=== PATIENT | female | born 1995 | race Caucasian/White ===

== ENCOUNTER 2022-06-25 18:45 | Outpatient (CLI) ==
[~2022-06-25] VITALS: Ht 160 cm; Wt 86.1 kg
[2022-06-25 19:15] VITALS: BP 114/69
[2022-06-25] MEDS ORDERED: PRENTAB9 PO (19:26)
== END 2022-06-25 20:27 | disposition home or self-care (01) ==
LOC: M LDO 18:45
PROVIDERS: ATTEND Obstetrics & Gynecology
DX: O26.899 Other specified pregnancy related conditions, unspecified trimester (principal); Z3A.00 Weeks of gestation of pregnancy not specified; Z88.0 Allergy status to penicillin; R10.11 Right upper quadrant pain

== ENCOUNTER 2022-10-14 09:58 | Inpatient (IN) | payer OTHER ==
[~2022-10-14] VITALS: Ht 160 cm; Wt 95.0 kg
[2022-10-14] VITALS (49 sets, daily range): BP systolic 106–188; BP diastolic 54–109
[~2022-10-14 09:58] MED LIST: PRENTAB9 PO
[2022-10-14] MEDS ORDERED: CALC500C16 PO (10:18)
[2022-10-14] MEDS ORDERED: [UNRECOGNIZED DRUG - OTHER] (10:18)
[2022-10-14] MEDS ORDERED: HOME MED LIST COMPLETE! XX SCH (10:20)
[2022-10-14 11:44] LABS: BASO % 0.2 % (0.0-1.0); EOS # 0.2 10^3/uL (0.0-0.5); EOS % 1.6 % (0.0-3.0); HEMATOCRIT 37.8 % (36.0-47.0); HEMOGLOBIN 12.8 g/dl (12.0-15.5); LYMPH # 2.1 10^3/uL (1.5-5.0); LYMPH % 19.6 % (24.0-44.0); MEAN CORPUSCULAR HEMOGLOBIN 29.2 pg (27.0-33.0); MEAN CORPUSCULAR HGB CONC 33.9 g/dl (32.0-36.5); MEAN CORPUSCULAR VOLUME 86.1 fl (80.0-96.0); MONO # 0.8 10^3/uL (0.0-0.8); MONO % 7.1 % (2.0-8.0); NEUTROPHILS # 7.6 10^3/uL (1.5-8.5); PLATELET COUNT, AUTOMATED 207 10^3/uL (150-450); RED BLOOD COUNT 4.39 10^6/uL (4.00-5.40); WHITE BLOOD COUNT 10.7 10^3/uL (4.0-10.0)
[2022-10-14 11:59] LABS: URIC ACID 5.2 MG/DL (3.1-7.8)
[2022-10-14 12:01] LABS: LDH LACTATE DEHYDROGENASE 188 U/L (120-246)
[2022-10-14 12:02] LABS: ALT/SGPT 11 U/L (7.0-40); AST/SGOT 12 U/L (<34); BILIRUBIN,TOTAL 0.5 MG/DL (0.3-1.2); CREATININE FOR GFR 0.54 MG/DL (0.55-1.30); CREATININE,RANDOM URINE 163.2 MG/DL; GLOMERULAR FILTRATION RATE > 60.0 (>60)
[2022-10-14] MEDS ORDERED: CARBOPROST TROMETHAMINE 250 MCG/ML AMP IM PRN (12:30)
[2022-10-14] MEDS ORDERED: LABETALOL 100MG/20ML VIAL IV ONE (12:30)
[2022-10-14] MEDS ORDERED: * PENDING VANCOMYCIN ENTRY XX SCH ×2 (12:30→21:00)
[2022-10-14] MEDS ORDERED: miSOPROStol 50MCG 1/2 TABLET SL ONE (12:30)
[2022-10-14] MEDS ORDERED: CALCIUM GLUCONATE 1,000 MG in D5W MINI-BAG PLUS 100 ML IV PRN (12:30)
[2022-10-14] MEDS ORDERED: TRANEXAMIC ACID INJection 1,000 MG in NS 100 ML IV PRN (12:30)
[2022-10-14] MEDS ORDERED: OXYTOCIN DRIP 30 UNITS in IV 1 EA IV PRN ×4 (12:30)
[2022-10-14] MEDS ORDERED: LIDOCAINE 1% MDV 20ML VIAL INFIL PRN (12:30)
[2022-10-14] MEDS ORDERED: MAG Sulf (L&D) 4 GM/100 ML 4 GM in IV 1 EA IV ONE (13:00)
[2022-10-14] MEDS ORDERED: LABETALOL 100MG/20ML VIAL IV SCH (13:00)
[2022-10-14] MEDS: MAG Sulf (OBGYN) 20GM/500ML 20,000 MG in IV 1 EA IV SCH (13:38)
[2022-10-14] MEDS ORDERED: LABETALOL 100MG/20ML VIAL IV STA (21:54)
[2022-10-14] MEDS ORDERED: PROMETHAZINE 25MG/ML 1ML VIAL IV ONE (23:10)
[2022-10-14] MEDS ORDERED: LABETALOL 200 MG TAB PO ONE (23:20)
[2022-10-14] MEDS ORDERED: MAGNESIUM SULFATE 4% INJ 20GM/500ML (40MG/ML) As Ordered ONE (23:36)
[2022-10-14] MEDS: BUTORPHANOL 2 MG/ML 1ML VIAL IV PRN (23:44)
[2022-10-15] VITALS (77 sets, daily range): BP systolic 114–185; BP diastolic 61–112
[2022-10-15] MEDS ORDERED: VANCOMYCIN HCL 1,000 MG, VIAL MATE ADAPTER 1 EACH in NS 250 ML IV ONE ×4 (01:00)
[2022-10-15] MEDS: miSOPROStol 50MCG 1/2 TABLET PO SCH ×2 (05:22→09:31)
[2022-10-15] MEDS: BUTORPHANOL 2 MG/ML 1ML VIAL IV PRN (06:56)
[2022-10-15] MEDS ORDERED: LABETALOL 200 MG TAB PO SCH (09:00)
[2022-10-15 09:01] LABS: BASO % 0.3 % (0.0-1.0); EOS # 0.1 10^3/uL (0.0-0.5); EOS % 0.8 % (0.0-3.0); HEMATOCRIT 34.6 % (36.0-47.0); HEMOGLOBIN 11.6 g/dl (12.0-15.5); LYMPH # 1.4 10^3/uL (1.5-5.0); LYMPH % 12.2 % (24.0-44.0); MEAN CORPUSCULAR HEMOGLOBIN 29.2 pg (27.0-33.0); MEAN CORPUSCULAR HGB CONC 33.5 g/dl (32.0-36.5); MEAN CORPUSCULAR VOLUME 87.2 fl (80.0-96.0); MONO # 0.6 10^3/uL (0.0-0.8); MONO % 5.2 % (2.0-8.0); NEUTROPHILS # 9.3 10^3/uL (1.5-8.5); PLATELET COUNT, AUTOMATED 184 10^3/uL (150-450); RED BLOOD COUNT 3.97 10^6/uL (4.00-5.40); WHITE BLOOD COUNT 11.5 10^3/uL (4.0-10.0)
[2022-10-15 09:20] LABS: INR 0.88; PROTHROMBIN TIME 12.1 SECONDS (12.5-14.5)
[2022-10-15 09:24] LABS: ALBUMIN 2.5 G/DL (3.2-5.2); ALKALINE PHOSPHATASE 122 U/L (46-116); ALT/SGPT 9 U/L (7.0-40); AST/SGOT 18 U/L (<34); BILIRUBIN,TOTAL 0.4 MG/DL (0.3-1.2); BLOOD UREA NITROGEN < 5 MG/DL (9-23); CALCIUM LEVEL 7.5 MG/DL (8.5-10.1); CARBON DIOXIDE LEVEL 20 MMOL/L (20-31); CHLORIDE LEVEL 104 MMOL/L (98-107); CREATININE FOR GFR 0.56 MG/DL (0.55-1.30); GLOMERULAR FILTRATION RATE > 60.0 (>60); GLUCOSE, FASTING 107 MG/DL (60-100); POTASSIUM SERUM 4.4 MMOL/L (3.5-5.1); SODIUM LEVEL 137 MMOL/L (136-145); TOTAL PROTEIN 5.4 G/DL (5.7-8.2)
[2022-10-15] MEDS: MAG Sulf (OBGYN) 20GM/500ML 20,000 MG in IV 1 EA IV SCH ×2 (09:38→19:09)
[2022-10-15] MEDS: LR 1,000 ML IV SCH (12:03)
[2022-10-15] MEDS: VANCOMYCIN HCL 1,000 MG, VIAL MATE ADAPTER 1 EACH in NS 250 ML IV SCH (12:03)
[2022-10-15] MEDS ORDERED: OXYTOCIN DRIP 30 UNITS in IV 1 EA IV SCH (13:45)
[2022-10-15] MEDS: LABETALOL 100MG TAB PO SCH (17:53)
[2022-10-15] MEDS ORDERED: LABETALOL 100MG/20ML VIAL IV STA ×3 (18:22→19:01)
[2022-10-15 18:35] LABS: HEMATOCRIT 35.8 % (36.0-47.0); HEMOGLOBIN 11.9 g/dl (12.0-15.5); MEAN CORPUSCULAR HGB CONC 33.2 g/dl (32.0-36.5); MEAN CORPUSCULAR VOLUME 87.3 fl (80.0-96.0); PLATELET COUNT, AUTOMATED 208 10^3/uL (150-450); WHITE BLOOD COUNT 12.8 10^3/uL (4.0-10.0)
[2022-10-15] MEDS ORDERED: ePHEDrine SULFATE 25 MG/5 ML(5MG/ML) SYRINGE IVP PRN (19:40)
[2022-10-15] MEDS ORDERED: LR 500 ML IV PRN (19:40)
[2022-10-15] MEDS ORDERED: ONDANSETRON 4MG 2ML VIAL IV PRN (19:40)
[2022-10-15] MEDS ORDERED: NALOXONE INJ 0.4MG/1ML VIAL IV PRN (19:40)
[2022-10-15] MEDS ORDERED: diphenhydrAMINE 50MG/ML VIAL IV PRN (19:40)
[2022-10-15] MEDS ORDERED: EPIDURAL/PCA KEYS XX PRN (19:40)
[2022-10-15] MEDS: FENTANYL/ROPIVACAINE/NACL BAG 100 ML EPIDURAL SCH (20:18)
[2022-10-16] VITALS (75 sets, daily range): BP systolic 115–186; BP diastolic 55–108
[2022-10-16] MEDS: VANCOMYCIN HCL 1,000 MG, VIAL MATE ADAPTER 1 EACH in NS 250 ML IV SCH (00:16)
[2022-10-16] MEDS ORDERED: LABETALOL 100MG/20ML VIAL IV STA ×6 (03:20→05:48)
[2022-10-16] MEDS: LABETALOL 100MG TAB PO SCH ×3 (03:26→18:44)
[2022-10-16] MEDS ORDERED: hydrALAZINE 20MG/ML 1ML VIAL IV STA ×3 (04:38→08:30)
[2022-10-16] MEDS: MAG Sulf (OBGYN) 20GM/500ML 20,000 MG in IV 1 EA IV SCH ×2 (04:52→14:40)
[2022-10-16] MEDS: FENTANYL/ROPIVACAINE/NACL BAG 100 ML EPIDURAL SCH (04:58)
[2022-10-16] MEDS ORDERED: ACETAMINOPHEN TAB 650MG DOSE (2X325MG) PO PRN (06:45)
[2022-10-16] MEDS ORDERED: METHYLERGONOVINE MALEATE 0.2 MG TAB PO PRN (06:45)
[2022-10-16] MEDS ORDERED: RHOGAM 300 MCG (1500 IU) INJ (J2790) IM SCH (06:45)
[2022-10-16] MEDS ORDERED: DIBUCAINE 1% OINTMENT 30GM TOP PRN (06:45)
[2022-10-16] MEDS ORDERED: OXYTOCIN DRIP 30 UNITS in IV 1 EA IV SCH ×4 (06:45)
[2022-10-16] MEDS ORDERED: DOCUSATE SODIUM 100MG CAPSULE PO PRN (06:45)
[2022-10-16] MEDS ORDERED: IBUPROFEN 600MG TAB PO PRN (06:45)
[2022-10-16 06:54] LABS: CORD GAS ABE A -4.4; CORD GAS ABE V -0.7; CORD GAS HCO3 A 24.3 MEQ/L; CORD GAS HCO3 V 24.6 MEQ/L; CORD GAS O2 SAT A 32.1 %; CORD GAS O2 SAT V 67.9 %; CORD GAS PCO2 A 59.7 mmHg; CORD GAS PCO2 V 42.6 mmHg; CORD GAS PH A 7.228 UNITS; CORD GAS PH V 7.379 UNITS; CORD GAS PO2 A 18.2 mmHg; CORD GAS PO2 V 28.2 mmHg; CORD GAS SBC A 19.4 MEQ/L; CORD GAS SBC V 23.1 MEQ/L; CORD GAS TCO2 A 26.2 MEQ/L; CORD GAS TCO2 V 25.9 MEQ/L
[2022-10-16] MEDS: IBUPROFEN 800 MG TAB PO PRN (09:04)
[2022-10-16] MEDS: PRENATAL VITAMINS CHEWABLE TABLET PO SCH (10:12)
[2022-10-16] MEDS ORDERED: LABETALOL 100MG TAB PO SCH (12:00)
[2022-10-16] MEDS: LR 1,000 ML IV SCH (17:07)
[2022-10-17] VITALS (45 sets, daily range): BP systolic 105–190; BP diastolic 55–110
[2022-10-17] MEDS: MAG Sulf (OBGYN) 20GM/500ML 20,000 MG in IV 1 EA IV SCH ×2 (00:16→20:19)
[2022-10-17] MEDS: LABETALOL 100MG TAB PO SCH (04:10)
[2022-10-17] MEDS ORDERED: LABETALOL 200 MG TAB PO STA ×2 (05:14→12:05)
[2022-10-17] MEDS: PRENATAL VITAMINS CHEWABLE TABLET PO SCH (08:43)
[2022-10-17 09:37] LABS: HEMATOCRIT 32.1 % (36.0-47.0); HEMOGLOBIN 10.7 g/dl (12.0-15.5); MEAN CORPUSCULAR HEMOGLOBIN 29.6 pg (27.0-33.0); MEAN CORPUSCULAR HGB CONC 33.3 g/dl (32.0-36.5); MEAN CORPUSCULAR VOLUME 88.7 fl (80.0-96.0); PLATELET COUNT, AUTOMATED 175 10^3/uL (150-450); RED BLOOD COUNT 3.62 10^6/uL (4.00-5.40)
[2022-10-17 10:07] LABS: ALBUMIN 2.2 G/DL (3.2-5.2); ALKALINE PHOSPHATASE 95 U/L (46-116); ALT/SGPT < 9 U/L (7.0-40); AST/SGOT 13 U/L (<34); BILIRUBIN,TOTAL 0.3 MG/DL (0.3-1.2); BLOOD UREA NITROGEN 6 MG/DL (9-23); CALCIUM LEVEL 7.6 MG/DL (8.5-10.1); CARBON DIOXIDE LEVEL 21 MMOL/L (20-31); CHLORIDE LEVEL 107 MMOL/L (98-107); CREATININE FOR GFR 0.63 MG/DL (0.55-1.30); GLOMERULAR FILTRATION RATE > 60.0 (>60); GLUCOSE, FASTING 102 MG/DL (60-100); POTASSIUM SERUM 3.6 MMOL/L (3.5-5.1); SODIUM LEVEL 140 MMOL/L (136-145); TOTAL PROTEIN 4.9 G/DL (5.7-8.2)
[2022-10-17] MEDS: NIFEdipine 30MG XL TAB PO SCH (11:56)
[2022-10-17] MEDS ORDERED: LABETALOL 200 MG TAB PO SCH (12:00)
[2022-10-17] MEDS ORDERED: hydrALAZINE 20MG/ML 1ML VIAL IV STA ×2 (17:43→18:37)
[2022-10-17] MEDS ORDERED: CALCIUM GLUCONATE 1,000 MG in D5W MINI-BAG PLUS 100 ML IV PRN (18:55)
[2022-10-17] MEDS ORDERED: MAG Sulf (L&D) 4 GM/100 ML 4 GM in IV 1 EA IV ONE (18:55)
[2022-10-17] MEDS: IBUPROFEN 800 MG TAB PO PRN (18:59)
[2022-10-17] MEDS ORDERED: LABETALOL 100MG/20ML VIAL IV STA (19:21)
[2022-10-17] MEDS: LR 1,000 ML IV SCH (19:57)
[2022-10-17] MEDS: LABETALOL 200 MG TAB PO SCH (20:37)
[2022-10-18] VITALS (24 sets, daily range): BP systolic 120–160; BP diastolic 60–94
[2022-10-18] MEDS: LABETALOL 200 MG TAB PO SCH ×3 (04:12→20:06)
[2022-10-18] MEDS: ACETAMINOPHEN 500 MG TAB PO PRN ×2 (04:22→14:14)
[2022-10-18] MEDS: MAG Sulf (OBGYN) 20GM/500ML 20,000 MG in IV 1 EA IV SCH ×2 (06:10→16:29)
[2022-10-18] MEDS: LR 1,000 ML IV SCH (07:17)
[2022-10-18 07:38] LABS: HEMATOCRIT 31.6 % (36.0-47.0); HEMOGLOBIN 10.2 g/dl (12.0-15.5); MEAN CORPUSCULAR HEMOGLOBIN 29.2 pg (27.0-33.0); MEAN CORPUSCULAR HGB CONC 32.3 g/dl (32.0-36.5); MEAN CORPUSCULAR VOLUME 90.5 fl (80.0-96.0); PLATELET COUNT, AUTOMATED 178 10^3/uL (150-450); RED BLOOD COUNT 3.49 10^6/uL (4.00-5.40); WHITE BLOOD COUNT 8.2 10^3/uL (4.0-10.0)
[2022-10-18 08:17] LABS: ALBUMIN 2.3 G/DL (3.2-5.2); ALKALINE PHOSPHATASE 87 U/L (46-116); ALT/SGPT < 9 U/L (7.0-40); AST/SGOT 14 U/L (<34); BILIRUBIN,TOTAL 0.2 MG/DL (0.3-1.2); BLOOD UREA NITROGEN < 5 MG/DL (9-23); CALCIUM LEVEL 7.6 MG/DL (8.5-10.1); CARBON DIOXIDE LEVEL 22 MMOL/L (20-31); CHLORIDE LEVEL 108 MMOL/L (98-107); GLOMERULAR FILTRATION RATE > 60.0 (>60); GLUCOSE, FASTING 87 MG/DL (60-100); POTASSIUM SERUM 3.9 MMOL/L (3.5-5.1); SODIUM LEVEL 142 MMOL/L (136-145)
[2022-10-18] MEDS: NIFEdipine 30MG XL TAB PO SCH ×2 (08:24→20:24)
[2022-10-18] MEDS: PRENATAL VITAMINS CHEWABLE TABLET PO SCH (08:24)
[2022-10-18] MEDS ORDERED: MEASLES,MUMPS,RUBELLA VACCINE INJ (MMR-II) (90707) SC.IMMUN ONE (09:00)
[2022-10-18] MEDS: IBUPROFEN 800 MG TAB PO PRN (16:22)
[2022-10-19] VITALS (8 sets, daily range): BP systolic 138–156; BP diastolic 76–92
[2022-10-19] MEDS: LABETALOL 200 MG TAB PO SCH ×3 (06:09→20:03)
[2022-10-19 06:45] LABS: HEMATOCRIT 33.3 % (36.0-47.0); HEMOGLOBIN 10.9 g/dl (12.0-15.5); MEAN CORPUSCULAR HEMOGLOBIN 29.3 pg (27.0-33.0); MEAN CORPUSCULAR HGB CONC 32.7 g/dl (32.0-36.5); MEAN CORPUSCULAR VOLUME 89.5 fl (80.0-96.0); PLATELET COUNT, AUTOMATED 201 10^3/uL (150-450); RED BLOOD COUNT 3.72 10^6/uL (4.00-5.40); WHITE BLOOD COUNT 8.1 10^3/uL (4.0-10.0)
[2022-10-19] MEDS: PRENATAL VITAMINS CHEWABLE TABLET PO SCH (08:44)
[2022-10-19] MEDS: NIFEdipine 30MG XL TAB PO SCH ×2 (08:46→21:16)
[2022-10-20 02:00] VITALS: BP 143/85
[2022-10-20 04:17] VITALS: BP 142/93
[2022-10-20 04:20] VITALS: BP 142/93
[2022-10-20] MEDS: LABETALOL 200 MG TAB PO SCH (04:20)
[2022-10-20 06:00] VITALS: BP 135/82
[2022-10-20 07:03] LABS: HEMATOCRIT 35.2 % (36.0-47.0); HEMOGLOBIN 11.6 g/dl (12.0-15.5); MEAN CORPUSCULAR HEMOGLOBIN 29.1 pg (27.0-33.0); MEAN CORPUSCULAR VOLUME 88.4 fl (80.0-96.0); PLATELET COUNT, AUTOMATED 238 10^3/uL (150-450); RED BLOOD COUNT 3.98 10^6/uL (4.00-5.40); WHITE BLOOD COUNT 7.9 10^3/uL (4.0-10.0)
[2022-10-20] MEDS ORDERED: LABE20TAB PO (08:39)
[2022-10-20] MEDS ORDERED: ACET1TAB55 PO (08:39)
[2022-10-20] MEDS ORDERED: NIFE1TAB52 PO (08:39)
[2022-10-20] MEDS ORDERED: COLA100C5 PO (08:39)
[2022-10-20] MEDS ORDERED: IBUP-1022 PO (08:39)
[2022-10-20] MEDS ORDERED: NIFEdipine 30MG XL TAB PO SCH (09:00)
[2022-10-20 09:15] VITALS: BP 146/84
[2022-10-20] MEDS: PRENATAL VITAMINS CHEWABLE TABLET PO SCH (09:18)
== END 2022-10-20 12:10 | disposition home or self-care (01) | DRG 807 ==
LOC: M LDO 09:58 → M LDI 12:33 → M OBS 10-17 11:52
PROVIDERS: ADMIT Advanced Practice Midwife; ATTEND Advanced Practice Midwife
PROC: 3E033VJ Introduction of Other Hormone into Peripheral Vein, Percutaneous Approach (ICD-10-PCS; 2022-10-14)
PROC: 3E0P7VZ Introduction of Hormone into Female Reproductive, Via Natural or Artificial Opening (ICD-10-PCS; 2022-10-14)
PROC: 10E0XZZ Delivery of Products of Conception, External Approach (ICD-10-PCS; principal; 2022-10-16)
PROC: 10907ZC Drainage of Amniotic Fluid, Therapeutic from Products of Conception, Via Natural or Artificial Opening (ICD-10-PCS; 2022-10-16)
DX: O14.14 Severe pre-eclampsia complicating childbirth (principal); Z37.0 Single live birth; Z3A.36 36 weeks gestation of pregnancy; O69.1XX0 Labor and delivery complicated by cord around neck, with compression, not applicable or unspecified; O26.00 Excessive weight gain in pregnancy, unspecified trimester; O99.824 Streptococcus B carrier state complicating childbirth

== ENCOUNTER 2023-12-30 23:48 | Inpatient (IN) | payer OTHER ==
[~2023-12-30] VITALS: Ht 160 cm; Wt 100.3 kg
[~2023-12-30 23:48] MED LIST changes: +ACET1TAB55 PO; +CALC500C16 PO; +COLA100C5 PO; +IBUP-1022 PO; +LABE20TAB PO; +NIFE1TAB52 PO; +[UNRECOGNIZED DRUG - OTHER]
[2023-12-30] MEDS ORDERED: CARBOPROST TROMETHAMINE 250 MCG/ML AMP IM PRN (23:55)
[2023-12-30] MEDS ORDERED: TRANEXAMIC ACID INJection 1,000 MG in NS 100 ML IV PRN (23:55)
[2023-12-30] MEDS ORDERED: OXYTOCIN INJ 10UNITS/ML 1ML VIAL IM PRN (23:55)
[2023-12-30] MEDS ORDERED: LIDOCAINE 1% MDV 20ML VIAL INFIL PRN (23:55)
[2023-12-30] MEDS ORDERED: METHYLERGONOVINE MALEATE 0.2MG/ML 1ML VIAL IM PRN (23:55)
[2023-12-30] MEDS ORDERED: OXYTOCIN DRIP 30 UNITS in IV 1 EA IV PRN ×3 (23:55)
[2023-12-31] VITALS (37 sets, daily range): BP systolic 117–176; BP diastolic 55–103; O2SAT 98–99
[2023-12-31] MEDS ORDERED: VANCOMYCIN HCL 2,000 MG, VIAL MATE ADAPTER 1 EACH in NS 250 ML IV SCH
[2023-12-31] MEDS ORDERED: HOME MED LIST COMPLETE! XX SCH (00:35)
[2023-12-31 00:43] LABS: HEMATOCRIT 36.3 % (36.0-47.0); HEMOGLOBIN 12.3 g/dl (12.0-15.5); MEAN CORPUSCULAR HEMOGLOBIN 29.3 pg (27.0-33.0); MEAN CORPUSCULAR HGB CONC 33.9 g/dl (32.0-36.5); MEAN CORPUSCULAR VOLUME 86.4 fl (80.0-96.0); PLATELET COUNT, AUTOMATED 236 10^3/uL (150-450); WHITE BLOOD COUNT 10.1 10^3/uL (4.0-10.0)
[2023-12-31] MEDS: miSOPROStol 50MCG 1/2 TABLET PO SCH (00:58)
[2023-12-31] MEDS: diphenhydrAMINE 50MG CAP PO PRN (00:59)
[2023-12-31 01:03] LABS: TOTAL PROTEIN,RANDOM URINE 8.7 MG/DL (0.0-14.0)
[2023-12-31 01:08] LABS: CREATININE,RANDOM URINE 105.1 MG/DL; LDH LACTATE DEHYDROGENASE 168 U/L (120-246)
[2023-12-31 01:09] LABS: ALT/SGPT 10 U/L (7.0-40); AST/SGOT 10 U/L (<34); BILIRUBIN,TOTAL 0.3 MG/DL (0.3-1.2); CREATININE FOR GFR 0.57 MG/DL (0.55-1.30); GLOMERULAR FILTRATION RATE > 60.0 (>60)
[2023-12-31] MEDS: VANCOMYCIN HCL 1,000 MG, VIAL MATE ADAPTER 1 EACH in D5W 250 ML IV SCH ×2 (01:32→02:34)
[2023-12-31] MEDS: LR 1,000 ML IV SCH (01:32)
[2023-12-31] MEDS ORDERED: miSOPROStol 50MCG 1/2 TABLET PO SCH (04:00)
[2023-12-31 06:31] LABS: APPEARANCE, URINE CLEAR (CLEAR); BACTERIA, URINE AUTO 2+ (NEGATIVE); BILIRUBIN, URINE AUTO NEGATIVE (NEGATIVE); BLOOD, URINE BLOOD NEGATIVE (NEGATIVE); COLOR, URINE YELLOW (YELLOW); GLUCOSE, URINE (UA) AUTO NEGATIVE (NEGATIVE); KETONE, URINE AUTO NEGATIVE (NEGATIVE); LEUKOCYTE ESTERASE, URINE AUTO NEGATIVE (NEGATIVE); NITRITE, URINE AUTO NEGATIVE (NEGATIVE); PROTEIN, URINE AUTO NEGATIVE (NEGATIVE); RBC, URINE AUTO 1 /HPF (0-3); SPECIFIC GRAVITY URINE AUTO 1.018 (1.002-1.035); SQUAMOUS EPITHELIAL CELL UR AU 1 /HPF (0-6); URIC ACID CRYSTALS SMALL; UROBILINOGEN, URINE AUTO 0.2 mg/dL (0.0-2.0); WBC, URINE AUTO 1 /HPF (0-3)
[2023-12-31] MEDS ORDERED: [UNRECOGNIZED DRUG - REMARK] XX SCH (09:00)
[2023-12-31] MEDS: LABETALOL 200 MG TAB PO SCH (09:29)
[2023-12-31] MEDS ORDERED: ASPI81CH33 PO (10:11)
[2023-12-31] MEDS: OXYTOCIN DRIP 30 UNITS in IV 1 EA IV SCH (14:35)
[2023-12-31] MEDS ORDERED: ONDANSETRON 4MG 2ML VIAL IV PRN (17:05)
[2023-12-31] MEDS ORDERED: diphenhydrAMINE 50MG/ML VIAL IV PRN (17:05)
[2023-12-31] MEDS ORDERED: LR 500 ML IV PRN (17:05)
[2023-12-31] MEDS ORDERED: NALOXONE INJ 0.4MG/1ML VIAL IV PRN (17:05)
[2023-12-31] MEDS ORDERED: EPIDURAL/PCA KEYS XX PRN (17:05)
[2023-12-31] MEDS ORDERED: ePHEDrine SULFATE 25 MG/5 ML(5MG/ML) SYRINGE IVP PRN (17:05)
[2023-12-31] MEDS: FENTANYL/ROPIVACAINE/NACL BAG 100 ML EPIDURAL SCH (17:21)
[2023-12-31] MEDS: LACTATED RINGER'S 1000 ML IV STA (19:34)
[2024-01-01] MEDS ORDERED: ACETAMINOPHEN TAB 650MG DOSE (2X325MG) PO PRN (00:55)
[2024-01-01] MEDS ORDERED: METOCLOPRAMIDE INJ 10MG/2ML VIAL IV PRN (00:55)
[2024-01-01] MEDS ORDERED: DOCUSATE SODIUM 100MG CAPSULE PO PRN (00:55)
[2024-01-01] MEDS ORDERED: METHYLERGONOVINE MALEATE 0.2 MG TAB PO PRN (00:55)
[2024-01-01] MEDS ORDERED: IBUPROFEN 800 MG TAB PO PRN (00:55)
[2024-01-01] MEDS ORDERED: DIBUCAINE 1% OINTMENT 30GM TOP PRN (00:55)
[2024-01-01] MEDS ORDERED: ONDANSETRON 4MG 2ML VIAL IV PRN (00:55)
[2024-01-01] MEDS ORDERED: IBUPROFEN 600MG TAB PO PRN (00:55)
[2024-01-01] MEDS: LR 1,000 ML IV SCH (01:18)
[2024-01-01] MEDS: OXYTOCIN DRIP 30 UNITS in IV 1 EA IV SCH (01:18)
[2024-01-01 03:00] VITALS: BP 132/65; O2SAT 96
[2024-01-01] MEDS: ACETAMINOPHEN 500 MG TAB PO PRN (03:01)
[2024-01-01 06:00] VITALS: BP 127/64; O2SAT 97
[2024-01-01] MEDS ORDERED: PRENATAL VITAMINS CHEWABLE TABLET PO SCH (09:00)
[2024-01-01] MEDS: PRENATAL VITAMINS CHEWABLE TABLET PO SCH (09:29)
[2024-01-01] MEDS: RHOGAM 300MCG (1500IU) INJ IM SCH (12:07)
[2024-01-01 18:00] VITALS: BP 136/87; O2SAT 98
[2024-01-01 20:49] VITALS: BP 129/71; O2SAT 98
[2024-01-02 05:40] VITALS: BP 144/82
[2024-01-02] MEDS ORDERED: LABE20TAB PO (07:44)
[2024-01-02 08:14] VITALS: BP 144/82; TEMP 97.6; O2SAT 98
[2024-01-02 08:47] VITALS: BP 142/84
[2024-01-03] MEDS ORDERED: MEASLES,MUMPS,RUBELLA VACCINE INJ (MMR-II) SC.IMMUN ONE (09:00)
== END 2024-01-02 12:00 | disposition home or self-care (01) | DRG 807 ==
LOC: M LDI 23:48 → M OBS 01-01 02:55
PROVIDERS: ADMIT Obstetrics & Gynecology; ATTEND Obstetrics & Gynecology
PROC: 3E0P7GC Introduction of Other Therapeutic Substance into Female Reproductive, Via Natural or Artificial Opening (ICD-10-PCS; 2023-12-30)
PROC: 10E0XZZ Delivery of Products of Conception, External Approach (ICD-10-PCS; principal; 2024-01-01)
DX: O13.4 Gestational [pregnancy-induced] hypertension without significant proteinuria, complicating childbirth (principal); Z37.0 Single live birth; Z3A.39 39 weeks gestation of pregnancy; O99.824 Streptococcus B carrier state complicating childbirth; Z88.0 Allergy status to penicillin; Z79.899 Other long term (current) drug therapy; O69.81X0 Labor and delivery complicated by cord around neck, without compression, not applicable or unspecified

== ENCOUNTER → 2025-07-11 | Outpatient (CLI) | payer OTHER ==
[~2025-07-11] MED LIST changes: +ASPI81CH33 PO; -IBUP-1022 PO; +IBUP600T42 PO
[2025-07-11 14:48] LABS: PLATELET COUNT, AUTOMATED 227 10^3/uL (150-450)
[2025-07-11 14:49] LABS: LDH LACTATE DEHYDROGENASE 120 U/L (120-246)
[2025-07-11 14:50] LABS: ALT/SGPT 10 U/L (7.0-40); AST/SGOT 10 U/L (<34); CREATININE FOR GFR 0.53 MG/DL (0.55-1.30); GLOMERULAR FILTRATION RATE > 90.0 (>60)
[2025-07-11 15:04] LABS: TOTAL PROTEIN,RANDOM URINE 8.8 MG/DL (0.0-14.0)
== END ==
LOC: M PLALAB 10:28
PROVIDERS: ATTEND Student in an Organized Health Care Education/Training Program
DX: O09.299 Supervision of pregnancy with other poor reproductive or obstetric history, unspecified trimester (principal); Z3A.00 Weeks of gestation of pregnancy not specified

== ENCOUNTER → 2025-07-31 | Outpatient (CLI) | payer OTHER | LOC: M RAD 13:56 | PROVIDERS: ATTEND Student in an Organized Health Care Education/Training Program | DX: Z34.82 Encounter for supervision of other normal pregnancy, second trimester (principal); Z3A.19 19 weeks gestation of pregnancy ==

== ENCOUNTER → 2025-09-11 | Outpatient (CLI) | payer OTHER ==
[2025-09-11 13:53] LABS: PLATELET COUNT, AUTOMATED 239 10^3/uL (150-450)
[2025-09-11 14:18] LABS: GLUCOSE CHALLENGE TEST 1 HOUR 82 MG/DL (LESS THAN 140)
[2025-09-11 14:54] LABS: HIV 1&2 SCREEN NEGATIVE (NEGATIVE)
[2025-09-11 15:02] LABS: HEPATITIS C VIRUS ABY INDEX < 0.02 INDEX (<0.8)
[2025-09-11 15:07] LABS: Trichomonas vaginalis (AMP) NOT DETECTED (NEGATIVE)
[2025-09-11 15:30] LABS: GC DNA AMPLIFICATION NEGATIVE (NEGATIVE)
== END ==
LOC: M PLALAB 08:34
PROVIDERS: ATTEND Advanced Practice Midwife
DX: Z34.92 Encounter for supervision of normal pregnancy, unspecified, second trimester (principal)
CPT/HCPCS: 36415; 82950; 85027; 86780; 86803; 86850; 86900; 86901; 87389; 87661; 87810; 87850; J2790